=== PATIENT | male | born 1980 | race Asian ===

== ENCOUNTER 2019-02-15 20:24 | Emergency (ER) | payer OTHER ==
[~2019-02-15] VITALS: Ht 172.7 cm; Wt 72.7 kg
[2019-02-15 22:26] VITALS: BP 148/79
== END 2019-02-15 22:28 | disposition home or self-care (01) ==
LOC: EMS 20:24
DX: S16.1XXA Strain of muscle, fascia and tendon at neck level, initial encounter (principal); V49.40XA Driver injured in collision with unspecified motor vehicles in traffic accident, initial encounter; Y93.89 Activity, other specified; Y92.89 Other specified places as the place of occurrence of the external cause; Y99.8 Other external cause status